=== PATIENT | male | born 1990 ===

== ENCOUNTER 2017-12-16 17:50 | Emergency (ER) | payer SELFPAY ==
[2017-12-16] MEDS ORDERED: Ketorolac Tromethamine 30 MG/ML VIAL ONE (18:17)
== END 2017-12-16 18:32 | disposition home or self-care (01) ==
LOC: ERS 17:50
DX: S93.402A Sprain of unspecified ligament of left ankle, initial encounter (principal); R09.81 Nasal congestion; X50.1XXA Overexertion from prolonged static or awkward postures, initial encounter; Y93.02 Activity, running
CPT/HCPCS: 96372; J1885